=== PATIENT | male | born 1990 | race Caucasian/White ===

== ENCOUNTER 2019-08-04 12:54 | Outpatient (CLI) | payer SELFPAY ==
--- NOTE | 2019-08-04 14:25 | RAD ---
PA AND LATERAL CHEST: Date: 08/04/2019 INDICATION: History of flu with shortness of breath. COMPARISON: None. FINDINGS: Lungs are clear. Heart size normal. No acute osseous abnormality evident. IMPRESSION: No acute cardiopulmonary abnormality. POS: CET
== END 2019-08-04 12:55 | disposition home or self-care (01) ==
LOC: SCSRAD 12:54
PROVIDERS: ATTEND Family Medicine
DX: R06.02 Shortness of breath (principal)
CPT/HCPCS: 71046